=== PATIENT | female | born 1990 | race African-American/Black ===

== ENCOUNTER 2017-11-04 14:40 | Inpatient (IN) | payer OTHER ==
[2017-11-04 18:09] VITALS: BMI 33.1
[2017-11-04 18:27] LABS: BASO % 0.3 % (0-2.0); EOS % 0.6 % (0-4.5); HEMATOCRIT 34.1 % (32.4-45.2); HEMOGLOBIN 11.8 GM/dL (10.7-15.3); LYMPH % 16.5 % (8-40); MCH 29.5 pg (25.7-33.7); MCHC 34.5 g/dl (32.0-36.0); MEAN CELL VOLUME 85.7 fl (80-96); MEAN PLT VOLUME 8.6 fl (7.5-11.1); NEUT % 75.6 % (42.8-82.8); PLATELET COUNT 271 K/MM3 (134-434); RBC 3.98 M/mm3 (3.60-5.2); RDW 14.8 % (11.6-15.6)
[2017-11-04 18:41] LABS: INR 0.97 (0.82-1.09)
[2017-11-04 18:52] LABS: ANION GAP 10 (8-16); BLOOD UREA NITROGEN 4 mg/dL (7-18); CALCIUM 8.8 mg/dL (8.5-10.1); CHLORIDE 108 mmol/L (98-107); CO2 22 mmol/L (21-32); CREATININE 0.6 mg/dL (0.55-1.02); GLUCOSE,RANDOM 101 mg/dL (74-106); POTASSIUM 3.7 mmol/L (3.5-5.1); SODIUM 140 mmol/L (136-145)
[2017-11-04] MEDS ORDERED: PROMETHAZINE HCL 25 MG/1 ML VIAL IVPUSH ONE (19:15)
[2017-11-04] MEDS ORDERED: BUTORPHANOL TARTRATE 1 MG/ML VIAL IVPUSH ONE (19:15)
[2017-11-04] MEDS ORDERED: DINOPROSTONE 10 MG VAGINAL SUPPOSITORY VG ONE (19:15)
[2017-11-04] MEDS: DEXTROSE 5%-LACTATED RINGERS 1,000 ML IV SCH (20:30)
[2017-11-05] MEDS: DEXTROSE 5%-LACTATED RINGERS 1,000 ML IV SCH ×3 (03:30→15:00)
--- NOTE | 2017-11-05 07:10 | HP ---
Past Medical History - Primary Care Physician PCP:: Arianne Nevarez - Admission Chief Complaint: 27 yo P0 admitted for induction of labor History of Present Illness: 27 yo P0 admitted for induction of labor History Source: Patient Limitations to Obtaining History: No Limitations - Past Medical History ...: 2 ...Para: 0 ...Term: 0 ...: 0 ...Spon : 1 ...Induced : 0 ...Multiple Gestation: 0 ...LMP: 01/26/17 ... Weeks Gestation by Dates: 40.0 ...EDC by Dates: 11/04/17 ...EDC by Sono: 11/02/17 - Past Surgical History Past Surgical History: Yes: None Hx Myomectomy: No Hx Transabdominal Cerclage: No - Smoking History Smoking history: Never smoked Have you smoked in the past 12 months: No - Alcohol/Substance Use Hx Alcohol Use: No - Social History Usual Living Arrangement: Yes: With Spouse History of Recent Travel: No Home Medications - Allergies Allergies/Adverse Reactions: Allergies Allergy/AdvReac Type Severity Reaction Status Date / Time No Known Drug Allergies Allergy Verified 11/04/17 17:35 - Home Medications Home Medications: Ambulatory Orders Pnv No.95/Ferrous Fum/Folic AC [ Vitamin Tablet] 1 each PO DAILY Valacyclovir HCl [Valtrex] 1,000 mg PO DAILY 11/04/17 Review of Systems - Review of Systems Constitutional: reports: No Symptoms Eyes: reports: No Symptoms HENT: reports: No Symptoms Neck: reports: No Symptoms Cardiovascular: reports: No Symptoms Respiratory: reports: No Symptoms Gastrointestinal: reports: No Symptoms Genitourinary: reports: No Symptoms Breasts: reports: No Symptoms Reported Musculoskeletal: reports: No Symptoms Integumentary: reports: No Symptoms Neurological: reports: No Symptoms Endocrine: reports: No Symptoms Hematology/Lymphatic: reports: No Symptoms Psychiatric: reports: No Symptoms Physical Exam - Maternity Vital Signs: Vital Signs Temperature 98.0 F 11/05/17 06:00 Pulse Rate 101 H 11/05/17 06:00 Respiratory Rate 11/05/17 06:00 Blood Pressure 116/67 11/05/17 06:00 O2 Sat by Pulse Oximetry (%) Constitutional: Yes: Well Nourished, No Distress Cardiovascular: Yes: WNL Lungs: Clear to auscultation Breast(s): Yes: WNL - Abdominal Exam/OB Number of Fetuses: Single Presentation: Vertex Contractions: No Monitor Mode: External Category: I Decelerations: None - Vaginal Exam/OB Dilatation (cm): 1 cm Amniotic Membrane Status: Intact Presentation: Vertex/Position - Physical Exam Extremities: Yes: WNL Edema: No - Labs Lab Results: CBC, BMP 11/04/17 18:10 11/04/17 18:10 Problem List - Problems (1) Elective induction of labor planned Code(s): [id number] - Assessment/Plan IUP at 40 week induction of labor HIV neg GBS neg Plan Cervidil
--- NOTE | 2017-11-05 07:35 | PN ---
Ante-Partal Exam - Subjective Vital Signs: Vital Signs Temperature 98.0 F 11/05/17 06:00 Pulse Rate 101 H 11/05/17 06:00 Respiratory Rate 18 11/05/17 06:00 Blood Pressure 116/67 11/05/17 06:00 O2 Sat by Pulse Oximetry (%) Bleeding: No Headache: No Visual changes: No Right upper quadrant pain: No - Contractions Contractions: Yes Regularity: Irregular Monitor Mode: External - Exam during Labor Category: I Monitor Decelerations: None Exam: Vaginal Dilatation (cm): 1 cm Amniotic Membrane Status: Intact Presentation: Vertex - Intrapartum Hemorrhage Risk Risk Score: 0 Risk Level: Low Risk
[2017-11-05] MEDS ORDERED: OXYTOCIN 30 UNITS in 0.9% NS 30 UNIT/500 ML INFUS.BAG IVPB SCH (08:15)
[2017-11-05] MEDS ORDERED: OXYTOCIN 15 UNITS/ LR 250 ML 250 ML IVPB SCH (10:30)
[2017-11-05] MEDS ORDERED: BUTORPHANOL TARTRATE 1 MG/ML VIAL ONE ×2 (10:50)
[2017-11-05] MEDS ORDERED: PROMETHAZINE HCL 25 MG/1 ML VIAL ONE (10:50)
[2017-11-05] MEDS ORDERED: PROMETHAZINE HCL 25 MG/1 ML VIAL IVPB ONE (11:30)
[2017-11-05] MEDS ORDERED: BUTORPHANOL TARTRATE 1 MG/ML VIAL IVPB ONE (11:30)
[2017-11-05] MEDS ORDERED: FENTANYL/BUPIVACAINE/NS/PF - PCEA - 50 ML DISP.SYRIN EP ONE ×2 (15:24→20:46)
[2017-11-05] MEDS ORDERED: FENTANYL/BUPIVACAINE/NS/PF - PCEA - 50 ML DISP.SYRIN EP SCH (16:00)
[2017-11-05] MEDS ORDERED: NALOXONE HCL 0.4 MG/ML VIAL IVPUSH PRN (16:06)
--- NOTE | 2017-11-05 18:08 | PN ---
Ante-Partal Exam - Subjective Subjective: Pt on pitocin augmentation Vital Signs: Vital Signs Temperature 98.6 F 11/05/17 17:57 Pulse Rate 111 H 11/05/17 17:30 Respiratory Rate 20 11/05/17 17:30 Blood Pressure 103/79 11/05/17 17:30 O2 Sat by Pulse Oximetry (%) 96 11/05/17 17:30 Bleeding: No - Contractions Contractions: Yes - Exam during Labor Heart Rate: 140 Variability: Moderate Heart Rate Location: [facility] Category: I Monitor Accelerations: Present Monitor Decelerations: None Exam: Vaginal Dilatation (cm): 3 Effacement (%): 80 Amniotic Membrane Status: Ruptured Amniotic Fluid: Clear Presentation: Vertex Station: 0 - Intrapartum Hemorrhage Risk Risk Score: 0 Risk Level: Low Risk - Assessment/Plan Assessment/Plan: Active labot Cat 1 sp epidural sp arom Plan Continue present management
--- NOTE | 2017-11-05 19:51 | PN ---
Ante-Partal Exam - Subjective Subjective: Pt doing well Vital Signs: Vital Signs Temperature 98.6 F 11/05/17 17:57 Pulse Rate 103 H 11/05/17 18:45 Respiratory Rate 20 11/05/17 18:45 Blood Pressure 107/54 11/05/17 18:45 O2 Sat by Pulse Oximetry (%) 95 11/05/17 18:45 Bleeding: No Headache: No Visual changes: No Right upper quadrant pain: No - Contractions Contractions: Yes Monitor Mode: External - Exam during Labor Variability: Moderate Category: I Exam: Vaginal Dilatation (cm): 3-4 cm Amniotic Membrane Status: Ruptured Amniotic Fluid: Clear Presentation: Vertex Station: 0 - Intrapartum Hemorrhage Risk Risk Score: 1 Risk Level: Medium Risk - Assessment/Plan Assessment/Plan: Active labor no progress yet Cat 1 reassuring tracing Plan continue present management
[2017-11-05] MEDS ORDERED: OXYTOCIN 20 UNITS in 0.9% NS 20 UNIT/1,000 ML INFUS.BAG IV ONE (21:26)
[2017-11-05] MEDS ORDERED: LIDOCAINE HCL 1% PRESERVATIVE FREE - 30ML VIAL ONE (21:50)
--- NOTE | 2017-11-05 22:34 | PN ---
Delivery - Delivery Vaginal Delivery: No Problems, Spontaneous Type of Anesthesia: Local, Epidural Episiotomy/Laceration: 1st degree EBL (cc): 450 Delivery, Single - Stages of Labor Placenta: Yes: Spontaneous - Condition of Gender: Female Position: OA - Feeding Plan Initial Plan: Exclusive throughout hospitalization
[2017-11-05] MEDS ORDERED: OXYTOCIN 20 UNITS in 0.9% NS 20 UNIT/1,000 ML INFUS.BAG IV SCH (23:00)
[2017-11-05 23:30] LABS: ARTERIAL BLOOD GAS PCO2 43.2 mmHg (35-45); ARTERIAL BLOOD GAS pH 7.32 (7.35-7.45)
[2017-11-05] MEDS ORDERED: IBUPROFEN 600 MG TABLET (FP) PO ONE (23:31)
[2017-11-05] MEDS ORDERED: ACETAMINOPHEN 325 MG TABLET (FP) ONE (23:32)
[2017-11-05 23:37] LABS: ARTERIAL BLD GAS O2 SATURATION 59.1 % (90-98.9); ARTERIAL BLOOD GAS BASE EXCESS -4.2 meq/l (-2-2); ARTERIAL BLOOD GAS PO2 28.7 mmHg (80-100)
[2017-11-05 23:38] LABS: VENOUS PC02 45.9 mmHg (38-52); VENOUS PH 7.29 (7.32-7.42)
[2017-11-05 23:39] LABS: VENOUS PO2 26.6 mmHg (28-48)
[2017-11-05] MEDS ORDERED: BENZOCAINE 20% 57 GM BOTTLE TP PRN (23:41)
[2017-11-05] MEDS ORDERED: WITCH HAZEL 50% (TUCKS) 40 PAD/JAR PAD TP PRN (23:41)
[2017-11-05] MEDS ORDERED: BISACODYL 10 MG SUPP.RECT PR PRN (23:41)
[2017-11-05] MEDS ORDERED: IBUPROFEN 600 MG TABLET (FP) PO PRN (23:41)
[2017-11-05] MEDS ORDERED: ACETAMINOPHEN 325 MG TABLET (FP) PO PRN (23:41)
[2017-11-05] MEDS ORDERED: BENZOCAINE 28 GM HEMORRHOIDAL OINTMENT PR PRN (23:41)
[2017-11-05] MEDS ORDERED: oxyCODONE HCL 5 MG TABLET PO ONE (23:45)
[2017-11-05] MEDS ORDERED: ACETAMINOPHEN 325 MG TABLET (FP) PO ONE (23:45)
[2017-11-06] MEDS ORDERED: OXYTOCIN 20 UNITS in 0.9% NS 20 UNIT/1,000 ML INFUS.BAG IV ONE (00:12)
--- NOTE | 2017-11-06 09:02 | PN ---
Post Progress Note - Subjective Subjective: 27 yo Para 1 status post vaginal delivery, seen and evaluated. Doing well. No complaints. Post Day: 1 Type of Delivery: Vital Signs: Vital Signs Temperature 98.0 F 11/06/17 05:26 Pulse Rate 100 H 11/06/17 01:07 Respiratory Rate 20 11/06/17 01:07 Blood Pressure 120/76 11/06/17 01:07 O2 Sat by Pulse Oximetry (%) 98 11/06/17 00:15 Breast Exam: Yes: Soft Uterus: Yes: Fundus Firm Abdomen/GI: Yes: Abdomen soft, Tolerating PO Lochia: Yes: Rubra Lochia, amount: Moderate Extremities: Yes: Calves non-tender Activity: Ambulating - Labs Labs: CBC WBC 14.0 K/mm3 (4.0-10.0) H 11/04/17 18:10 RBC 3.98 M/mm3 (3.60-5.2) 11/04/17 18:10 Hgb 11.8 GM/dL (10.7-15.3) 11/04/17 18:10 Hct 34.1 % (32.4-45.2) 11/04/17 18:10 MCV 85.7 fl (80-96) 11/04/17 18:10 MCH 29.5 pg (25.7-33.7) 11/04/17 18:10 MCHC 34.5 g/dl (32.0-36.0) 11/04/17 18:10 RDW 14.8 % (11.6-15.6) 11/04/17 18:10 Plt Count 271 K/MM3 (134-434) 11/04/17 18:10 MPV 8.6 fl (7.5-11.1) 11/04/17 18:10 Neutrophils % 75.6 % (42.8-82.8) 11/04/17 18:10 Lymphocytes % 16.5 % (8-40) 11/04/17 18:10 Monocytes % 7.0 % (3.8-10.2) 11/04/17 18:10 Eosinophils % 0.6 % (0-4.5) 11/04/17 18:10 Basophils % 0.3 % (0-2.0) 11/04/17 18:10 Problem List - Problems (1) Status post vaginal delivery Code(s): [id number] - Assessment/Plan Status post vaginal delivery Stable Continue routine care
[2017-11-06 09:06] LABS: BASO % 0.3 % (0-2.0); EOS % 0.2 % (0-4.5); HEMATOCRIT 28.2 % (32.4-45.2); HEMOGLOBIN 9.6 GM/dL (10.7-15.3); LYMPH % 12.4 % (8-40); MCH 29.3 pg (25.7-33.7); MCHC 34.2 g/dl (32.0-36.0); MEAN CELL VOLUME 85.6 fl (80-96); MEAN PLT VOLUME 8.8 fl (7.5-11.1); MONO % 10.4 % (3.8-10.2); NEUT % 76.7 % (42.8-82.8); PLATELET COUNT 214 K/MM3 (134-434); RBC 3.29 M/mm3 (3.60-5.2); RDW 14.6 % (11.6-15.6); WHITE BLOOD COUNT 28.9 K/mm3 (4.0-10.0)
[2017-11-06] MEDS ORDERED: DIPHTH,PERTUSS(ACELL),TET 0.5 ML DISP.SYRIN IM ONE (10:00)
--- NOTE | 2017-11-07 07:06 | DS ---
Physical Exam-[employer] Vital Signs: Vital Signs Temperature 98.6 F 11/06/17 22:00 Pulse Rate 108 H 11/06/17 22:00 Respiratory Rate 18 11/06/17 22:00 Blood Pressure 117/52 11/06/17 22:00 O2 Sat by Pulse Oximetry (%) 98 11/06/17 00:15 Constitutional: Yes: Well Nourished, No Distress Neck: Yes: WNL Cardiovascular: Yes: WNL Respiratory: Yes: WNL, Regular, CTA Bilaterally Gastrointestinal: Yes: WNL ....Post : Yes: Uterus firm, Uterus non-tender Breast(s): Yes: WNL Musculoskeletal: Yes: WNL Extremities: Yes: WNL Edema: No Neurological: Yes: WNL, Alert, Oriented Labs: CBC, BMP 11/06/17 08:25 11/04/17 18:10 Delivery - Delivery Vaginal Delivery: No Problems, Spontaneous Type of Anesthesia: Local, Epidural Episiotomy/Laceration: 1st degree EBL (cc): 450 Delivery, Single - Stages of Labor Date 1st Stage Initiatied: 11/05/17 Time 1st Stage Initiated: 11:15 Date 2nd Stage Initiated: 11/05/17 Time 2nd Stage Initiated: 16:00 Date of Delivery: 11/05/17 Time of Delivery: 21:56 Time Placenta Delivered: 22:00 Placenta: Yes: Spontaneous - 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 Gender: Female Weight: 6 lb 10 oz Position: OA Total Hours ROM (Hrs/Mins): 4 HOURS/ 39 MINUTES - 1 Minute Total Score: 9 5 Minutes Total Score: 9 - [place] Feeding Plan Initial Plan: Exclusive throughout hospitalization Discharge Summary Reason For Visit: INDUCTION Current Active Problems Elective induction of labor planned (Acute) Status post vaginal delivery (Acute) Procedures: Principal: Normal vaginal delivery Condition: Good - Instructions Diet, Activity, Other Instructions: Physical activity Resume your normal everyday activity as tolerated no heavy lifting or exercise until seen by your surgeon. You may walk unlimited elizabeth of and climb stairs. You may resume driving the car when you feel safe and comfortable behind the wheel. No sexual activity as instructed. Wound care If you have a bandage, leave it on, and keep dry for 48-72 hours. After that time discard the outer bandage. If they are tapes on the skin under the out of bandage leave them in place. They will peel off in the next 7 to 10 days. Do Not Peel them off. You may shower the day after surgery. If there are tapes present on the skin, you may shower over them. Diet There are no dietary restrictions. Eat healthy, high-fiber foods. Drink 6 to 8 glasses of liquid each day. This will assist in keeping your bowels are regular. Pain management You may take Tylenol or acetaminophen or Ibuprofen (for example, Motrin, Advil etc.) from my pain prescription medication is ordered should be taken as prescribed for moderate to severe pain. Call MD for any of the following: Severe pain not relieved by medication Fever of 101 or higher Excessive bleeding or drainage on dressing Inability to urinate Disposition: HOME - Home Medications Comprehensive Discharge Medication List: Ambulatory Orders Pnv No.95/Ferrous Fum/Folic AC [ Vitamin Tablet] 1 each PO DAILY Valacyclovir HCl [Valtrex] 1,000 mg PO DAILY 11/04/17 Ibuprofen [Motrin -] 600 mg PO QID PRN #28 tablet 11/07/17
[2017-11-07 11:14] VITALS: BP 109/60; PULSE 99; TEMP 98.1
== END 2017-11-07 14:00 | disposition home or self-care (01) | DRG 560 ==
LOC: JLDR 14:40 → J3W 11-06 01:00
PROVIDERS: ADMIT Obstetrics & Gynecology; ATTEND Obstetrics & Gynecology
PROC: 10E0XZZ Delivery of Products of Conception, External Approach (ICD-10-PCS; principal; 2017-11-05)
PROC: 0HQ9XZZ Repair Perineum Skin, External Approach (ICD-10-PCS; 2017-11-05)
DX: O48.0 Post-term pregnancy (principal); O70.0 First degree perineal laceration during delivery; Z3A.40 40 weeks gestation of pregnancy; Z37.0 Single live birth
CPT/HCPCS: 36415; 36600; 59409; 80048; 82803; 85025; 85610; 85730; 86593; 86850; 86900; 86901; 87389; 90715